=== PATIENT | male | born 1950 | race Caucasian/White ===

== ENCOUNTER → 2016-06-02 | Day surgery (SDC) | payer OTHER ==
[~2016-06-02] MED LIST: ANDROGEL1.25 GM TD; ANDROGEL150 GM; ASPIRIN81 M2 PO; ASPIRIN81 MG PO; B-121000 MC1 PO; BACTRIM DS TABL1 TA1 PO; CARDURA8 MG PO; CRANBERRY500 M3 PO; DETROL LA PO; GLUCOTROL XL PO; LEVOTHYROXINE150 MCG PO; LEVOTHYROXINE175 MCG PO; LEVOXYL175 MCG PO; LIPITOR20 MG PO; MAXZIDE 75/50 T1 TA1 PO; METFORMIN HCL1000 M1 PO; METFORMIN HCL500 M1 PO; MULTIPLE VITAMI1 T11 PO; MULTIVITAMIN1 UDCAP PO; SAW PALMETTO450 MG PO; TOLTERODINE TART4 MG PO; TRIAMTERENE-HC1 EACH PO; VALSARTAN160 MG PO
--- NOTE | ~2016-06-02 | OR ---
Unit #: [id number] #: [id number] Patient: OUMOU ROCHA [id number] [address] [address] [id number] MR#: [id number] NAME: OUMOU ROCHA. ROOM: Date of Procedure: 06/02/2016 Admission Date: 06/02/2016 Surgeon: Lambert Cooper M.D. : 1950 Attending Physician: Lambert Cooper M.D. Primary Care Physician: Benson Cheema M.D. OPERATIVE REPORT PRIMARY CARE PHYSICIAN Benson Cheema M.D. PREOPERATIVE DIAGNOSES The patient has presented with a history of dyspepsia, persistent gastroesophageal reflux disease, and epigastric pain. In addition, he needs a surveillance colonoscopy having personal history of colonic polyps and family history of colon cancer in his mother. PROCEDURES PERFORMED Upper gastrointestinal endoscopy and biopsy as well as colonoscopy with polypectomy and colonoscopy with submucosal injection. POSTOPERATIVE DIAGNOSES For upper endoscopy: 1. The patient had moderate distal erosive esophagitis. 2. Moderate prepyloric antral erosive gastritis. 3. Rest of the examination up to third part of duodenum was normal. For colonoscopy: The patient had multiple polyps, in fact a total of 10 polyps were removed. There were two polyps at the hepatic flexure, two in the transverse colon, two in the descending colon, and two in the sigmoid colon. One polyp each in cecum and hepatic flexure was fulgurated. The remaining polyps were all removed and retrieved and sent for histology. The size of the polyps ranged between 8 mm to 2.5 cm. In addition, the patient had mild sigmoid diverticulosis. The cecal polyp was flat sessile adenoma, which was removed after submucosal injection with methylcellulose and methylene blue. All the retrieved polyps were sent for histology. Excellent hemostasis was achieved and photodocumentation was obtained. RECOMMENDATIONS 1. Pantoprazole 40 mg p.o. daily or omeprazole 40 mg p.o. daily. 2. The patient will be followed up in the office in 3 months' time. SEDATION USED MAC. DESCRIPTION OF PROCEDURE Following detailed explanation of the potential risks and complications of an upper endoscopy and a colonoscopy, namely perforation, bleeding, and complications related to sedation, the patient was brought to GI lab and laid in the left lateral decubitus position. Lubricated tip of the Olympus video upper endoscope was passed through the bite block into the Unit #: [id number] #: [id number] Patient: OUMOU ROCHA proximal esophagus under direct vision. The entire esophageal mucosa was examined. The patient was noted to have moderate distal erosive esophagitis. The scope was then advanced into the gastric cavity and the latter was insufflated. Mucosa of the fundus, body, and antrum was examined and moderate prepyloric antral erythema erosions were noted indicating antral gastritis. Pylorus was intubated with visualization of the normal duodenal bulb and second and third part of the duodenum. Upon withdrawal and retroflexion, incisura, cardia, and greater curve was examined and a biopsy was obtained from the antrum for CLOtest. The scope was then withdrawn in the distal esophagus. The entire esophageal mucosa was examined all the way up to pharynx. No additional findings were noted. The examination table was then turned by 180 degrees and the patient was positioned for a colonoscopy. A digital rectal examination was performed, which was normal. Lubricated tip of the Olympus video colonoscope was inserted through the anus and advanced under direct vision. The scope was advanced past rectosigmoid into descending colon. Multiple small to medium-sized diverticula were noted in this area. In addition, multiple polyps were seen along the way. The scope tip was then navigated all the way up to cecum with visualization of the ileocecal valve and the appendiceal orifice. Preparation was excellent with good visualization and photodocumentation was obtained. Last several inches of the terminal ileum were also visualized after intubation of the ileocecal valve and appeared normal. Successive segments of the colonic mucosa were examined upon withdrawal. A flat sessile polyp was noted in the cecum. This was about 1.5 cm in size. It was removed after submucosal injection of methylcellulose and methylene blue followed by polypectomy. A second sessile cecal polyp was fulgurated. Two additional polyps were noted in the hepatic flexure. The largest of these was about 2.5 cm in size and was removed using snare polypectomy. A second smaller polyp was fulgurated. In addition, two polyps were noted in the transverse colon and two in the descending colon, and two in the sigmoid colon. The largest polyp was in the sigmoid colon about 3 cm in size. All the polyps were removed using snare polypectomy, retrieved and sent for histology. The patient had left-sided diverticulosis noted earlier. No hemorrhoids were seen at the anal verge. The scope was then withdrawn and the patient returned to the recovery area. He tolerated the procedure without any postprocedure complications. Dictated by.Candy. Irma Cervantes/blanka TD: 06/02/2016 11:14 JOB #: [id number] OPERATIVE REPORT X Lambert Cooper MD PROCEDURE OPERATIVE NOTE
== END | disposition home or self-care (01) ==
LOC: COPS 06:39
DX: K21.0 Gastro-esophageal reflux disease with esophagitis (principal); K29.60 Other gastritis without bleeding; D12.3 Benign neoplasm of transverse colon; D12.4 Benign neoplasm of descending colon; D12.5 Benign neoplasm of sigmoid colon; D12.0 Benign neoplasm of cecum; K57.30 Diverticulosis of large intestine without perforation or abscess without bleeding; Z86.010 Personal history of colon polyps; Z80.0 Family history of malignant neoplasm of digestive organs; E11.9 Type 2 diabetes mellitus without complications; Z85.850 Personal history of malignant neoplasm of thyroid; I10 Essential (primary) hypertension; E78.5 Hyperlipidemia, unspecified; N40.0 Benign prostatic hyperplasia without lower urinary tract symptoms; Z88.0 Allergy status to penicillin; Z88.5 Allergy status to narcotic agent
CPT/HCPCS: 82947; 87077; 88305; Q9968

== ENCOUNTER 2016-09-24 16:04 | Emergency (ER) | payer OTHER ==
[2016-09-24 16:31] LABS: URINE SOURCE CLEAN CATCH
[2016-09-24 16:37] LABS: URINE APPEARANCE CLOUDY; URINE BILIRUBIN NEG (NEG); URINE BLOOD 2+ (NEG); URINE COLOR YELLOW; URINE GLUCOSE 250 MG/DL (NEG); URINE KETONE TRACE (NEG); URINE LEUKOCYTE ESTERASE 3+ (NEG); URINE NITRATE POS (NEG); URINE PH 5.5 (5-8); URINE PROTEIN TRACE (NEG)
[2016-09-24 16:39] LABS: CULTURE INDICATED? YES; URINE BACTERIA AUWI 4+ (NEGATIVE); URINE SQUAMOUS EPITHELIAL CELL NONE SEEN /[HPF]; UWBCS1 AUWI 100-200 (0-5)
[2016-09-24 16:53] LABS: URINE MUCUS PRESENT
[2016-09-24 18:43] LABS: BASOPHIL% 0.2 % (0-2.5); EOSINOPHIL% 0.1 % (0.0-7.0); LYMPHOCYTE# 1.4 X10e3 (1.0-3.5); LYMPHOCYTE% 7.4 % (17.0-45.0); MEAN CELL VOLUME 85.4 FL (83-96); MEAN CORPUSCULAR HEMOGLOBIN 28.4 PG (28-34); MEAN CORPUSCULAR HGB CONC 33.2 g/dL (30-36); MEAN PLATELET VOLUME 8.3 FL (6.5-11.5); MONOCYTE# 1.4 X10e3 (0-1.0); MONOCYTE% 7.4 % (3.0-12.0); NEUTROPHIL# 16.3 X10e3 (1.5-7.1); NEUTROPHIL% 84.9 % (40-75); PLATELET COUNT 218 X10e3 (140-420); RED BLOOD COUNT 5.27 X10e (3.90-5.60); RED CELL DISTRIBUTION WIDTH 13.8 % (11.0-15.5); WHITE BLOOD COUNT 19.2 X10e3 (4.0-10.5)
[2016-09-24 18:44] LABS: DIFF IND YES
[2016-09-24 19:05] LABS: PLATELET ESTIMATE NORMAL (NORMAL)
[2016-09-24 19:06] LABS: CALCIUM SERUM 8.2 mg/dL (8.4-10.2); GLOM FILT RATE Estimated 79.2 mL/min (>60); POTASSIUM 3.5 mmol/L (3.5-5.1); RBC NORMAL YES
== END 2016-09-24 19:50 | disposition home or self-care (01) ==
LOC: CED 16:04
PROVIDERS: Emergency Medicine
DX: N10 Acute pyelonephritis (principal); I10 Essential (primary) hypertension; E11.9 Type 2 diabetes mellitus without complications
CPT/HCPCS: 36415; 80048; 81003; 85025; 87086; 87088; 87186; 96361; 96374; 96375; 99283; J0696; J2405